=== PATIENT | female | born 1980 | race Caucasian/White ===

== ENCOUNTER 2023-03-27 15:13 | Emergency (ER) | payer SELFPAY ==
[~2023-03-27] VITALS: Ht 160 cm; Wt 59.0 kg
[2023-03-27 15:15] VITALS: BP_SYST 119; PULSE 89; RESP 17; TEMP 98.2; O2SAT 97
[2023-03-27] MEDS ORDERED: ACET325T PO (15:25)
== END 2023-03-27 15:32 ==
LOC: SED 15:13
DX: G89.29 Other chronic pain (principal); M54.50 Low back pain, unspecified; Z79.899 Other long term (current) drug therapy
CPT/HCPCS: 99283